=== PATIENT | female | born 1965 | race African-American/Black ===

== ENCOUNTER 2017-04-05 11:45 | Emergency (ER) | payer MEDICARE, MEDICAID ==
[~2017-04-05] VITALS: Ht 167.6 cm; Wt 64.4 kg
[~2017-04-05 11:45] MED LIST: ALBUTEROL SULF8.5 GM INH; ASPIR 8181 MG ORAL; AZITHROMYCIN250 MG ORAL; IBUPROFEN600 MG ORAL; MULTI VITAMIN1 EACH ORAL; NORCO 10-325 T1 EACH ORAL
[2017-04-05 11:53] VITALS: BP 143/87
--- NOTE | 2017-04-05 12:30 | Emergency Room Report ---
History of Present Illness General Chief Complaint: Female Urogenital Problems Source: Patient Present Illness HPI 51 YO Female presents to the ED C/O Urinary incontinence x 1 month, with urinary urgency and dysuria on occasion. Denies hematuria. Denies fevers or chills. reports that she feels as though her bladder is full all the time. Denies abdominal pain, tenderness, N/V/C/D. denies low back pain. denies uterine prolapse. Denies vaginal discharge or pelvic pain. Denies recent trauma , fall or back pain. Denies CP, Palpitations, LOC, AMS, dizziness, Changes in Vision, Sensation, paresthesias, or a sudden severe headache. Allergies: Coded Allergies: No Known Allergies (Unverified , 01/07/16) Patient History Past Medical History: see triage record Past Surgical History: none Pertinent Family History: none Last Menstrual Period: menopause Now: No Reviewed Nursing Documentation: PMH: Agreed, PSxH: Agreed Nursing Documentation-PMH Past Medical History: No Stated History Review of Systems All Other Systems: negative except mentioned in HPI Physical Exam Vital Signs Date Time Temp Pulse Resp B/P (MAP) Pulse Ox O2 Delivery O2 Flow Rate FiO2 04/05/17 11:53 97.3 99 18 143/87 99 Room Air Sp02 EP Interpretation: reviewed, normal General Appearance: no apparent distress, alert, GCS 15, non-toxic Head: normocephalic, atraumatic ENT: hearing grossly normal, normal voice Neck: full range of motion Respiratory: lungs clear, normal breath sounds, speaking full sentences Cardiovascular #1: regular rate, rhythm Gastrointestinal: normal bowel sounds, non tender, soft Rectal: deferred Genitourinary: normal inspection, no CVA tenderness Musculoskeletal: back normal, gait/station normal Neurologic: alert, oriented x3, responsive, motor strength/tone normal, sensory intact, normal gait, speech normal Skin: normal color, no rash, warm/dry, well hydrated Medical Decision Making PA Attestation Dr. Espinal is my supervising Physician whom patient management has been discussed with. Diagnostic Impression: Primary Impression: Incontinence of urine in female ER Course 51 YO Female presents to the ED C/O Urinary incontinence x 1 month, with urinary urgency and dysuria on occasion. Denies hematuria. Denies fevers or chills. reports that she feels as though her bladder is full all the time. Denies abdominal pain, tenderness, N/V/C/D. denies low back pain. denies uterine prolapse. Denies vaginal discharge or pelvic pain. Denies recent trauma , fall or back pain. Denies CP, Palpitations, LOC, AMS, dizziness, Changes in Vision, Sensation, paresthesias, or a sudden severe headache. Ddx considered but are not limited to UTi , Pyelo, STI, Stone, Cystitis, incontinence, Vital signs: are WNL, pt. is afebrile H&PE are most consistent with UTI ORDERS: - UA labs are attached : Most indicative of contamination: presence of equal amounts of bacteria and squamous cells, no elevation in inflammatory markers, nitrite negative. Some RBC's noted. ED INTERVENTIONS: - Pyridium PO -Discussed with this patient that I do not identify an emergent condition at this time and that she is stable for close outpatient followup and needs to be evaluated by a urologist for urinary incontinence. DISCHARGE: At this time pt. is stable for d/c to home. Will provide printed patient care instructions, and any necessary prescriptions. Care plan and follow up instructions have been discussed with the patient prior to discharge. Labs Test 04/05/17 12:45 Urine Color Pale yellow Urine Appearance Slightly cloudy Urine pH 6 (4.5-8.0) Urine Specific [place] 1.010 (1.005-1.035) Urine Protein Negative (NEGATIVE) Urine Glucose (UA) Negative (NEGATIVE) Urine Ketones 1+ (NEGATIVE) Urine Occult Blood 4+ (NEGATIVE) Urine Nitrite Negative (NEGATIVE) Urine Bilirubin Negative (NEGATIVE) Urine Urobilinogen Normal MG/DL (0.0-1.0) Urine Leukocyte Esterase Negative (NEGATIVE) Urine RBC 5-10 /HPF (0 - 2) Urine WBC 0-2 /HPF (0 - 2) Urine Squamous Epithelial Cells Occasional /LPF Urine Bacteria Few /HPF (NONE) Last Vital Signs Date Time Temp Pulse Resp B/P (MAP) Pulse Ox O2 Delivery O2 Flow Rate FiO2 04/05/17 11:53 97.3 99 18 143/87 99 Room Air Disposition: HOME, SELF-CARE Condition: Stable Scripts Phenazopyridine Hcl* (PYRIDIUM*) 200 Mg Tablet 200 MG ORAL THREE TIMES A DAY for 3 Days, #9 TAB 0 Refills Prov: Anika Cruz 04/05/17 Patient Instructions: Urinary Incontinence Additional Instructions: Take medications as directed. Follow up with a UROLOGIST in 3-5 days Return sooner to ED if new symptoms occur, or current symptoms become worse. Pyridium will cause your urine to change color (Red/[place]), this is a normal side effect of the medication. - Please note that this Emergency Department Report was dictated using Jamgluematurity checker technology software, occasionally this can lead to erroneous entry secondary to interpretation by the dictation equipment. Anika Cruz Apr 05, 2017 12:30
[2017-04-05] MEDS ORDERED: Phenazopyridine 200mg tab ORAL ONE (13:00)
[2017-04-05 13:05] LABS: BILIRUBIN, URINE NEGATIVE (NEGATIVE); COLOR,URINE PALE YELLOW; GLUCOSE, URINE (UA) NEGATIVE (NEGATIVE); KETONES,URINE 1+ (NEGATIVE); LEUKOCYTE ESTERASE ,URINE NEGATIVE (NEGATIVE); NITRITE,URINE NEGATIVE (NEGATIVE); PH,URINE 6 (4.5-8.0); PROTEIN,URINE NEGATIVE (NEGATIVE); UROBILINOGEN,URINE NORMAL MG/DL (0.0-1.0)
[2017-04-05 13:29] LABS: APPEARANCE,URINE SLIGHTLY CLOUDY
[2017-04-05] MEDS ORDERED: PHENAZOPYRIDIN200 MG ORAL (13:32)
[2017-04-05 13:40] VITALS: BP 140/84
== END 2017-04-05 13:40 | disposition home or self-care (01) ==
LOC: EMR 12:21
DX: R32 Unspecified urinary incontinence (principal); R39.15 Urgency of urination; R30.0 Dysuria
CPT/HCPCS: 81003; 99283

== ENCOUNTER 2017-04-10 18:13 | Emergency (ER) | payer MEDICARE, MEDICAID ==
[~2017-04-10] VITALS: Ht 167.6 cm; Wt 66.2 kg
[~2017-04-10 18:13] MED LIST changes: +PHENAZOPYRIDIN200 MG ORAL
[2017-04-10] MEDS ORDERED: LATUDA40 MG PO (18:31)
[2017-04-10] MEDS ORDERED: AMBIEN10 M1 ORAL (18:31)
[2017-04-10] MEDS ORDERED: AZO URINARY TR1 EACH PO (18:32)
[2017-04-10 19:30] VITALS: BP 138/89
[2017-04-10 19:50] LABS: APPEARANCE,URINE CLEAR; BILIRUBIN, URINE NEGATIVE (NEGATIVE); COLOR,URINE PALE YELLOW; GLUCOSE, URINE (UA) NEGATIVE (NEGATIVE); KETONES,URINE NEGATIVE (NEGATIVE); LEUKOCYTE ESTERASE ,URINE NEGATIVE (NEGATIVE); NITRITE,URINE NEGATIVE (NEGATIVE); PH,URINE 6.5 (4.5-8.0); PROTEIN,URINE NEGATIVE (NEGATIVE); UROBILINOGEN,URINE NORMAL MG/DL (0.0-1.0)
[2017-04-10 20:15] VITALS: BP 132/79
[2017-04-10] MEDS ORDERED: CEPHALEXIN500 MG ORAL (20:19)
[2017-04-10 20:22] VITALS: BP 132/79
--- NOTE | 2017-04-10 22:23 | Emergency Room Report ---
History of Present Illness General Chief Complaint: General Complaint Source: Patient Present Illness [facility] The patient is a 51-year-old female presenting for continued urinary symptoms. She states that for the past 2 weeks she has had increased urinary frequency, urgency, and some dysuria. She was seen in this emergency department one week prior for the same complaints and was given prescription for Pyridium which she states helps but symptoms have now returned. She denies other symptoms including N, V, F, chills, back pain Allergies: Coded Allergies: No Known Allergies (Unverified , 01/07/16) Patient History Past Medical History: see triage record Pertinent Family History: none Last Menstrual Period: 2009 Now: No Reviewed Nursing Documentation: PMH: Agreed, PSxH: Agreed Nursing Documentation-PMH Hx Gastrointestinal Problems: Yes - GERD, Chronic Kidney Disease Review of Systems All Other Systems: negative except mentioned in HPI Physical Exam Vital Signs Date Time Temp Pulse Resp B/P (MAP) Pulse Ox O2 Delivery O2 Flow Rate FiO2 04/10/17 18:25 97.9 89 18 145/82 99 Room Air Sp02 EP Interpretation: reviewed, normal General Appearance: no apparent distress, alert, GCS 15, non-toxic Head: normocephalic, atraumatic Eyes: bilateral eye normal inspection, bilateral eye PERRL ENT: hearing grossly normal, normal pharynx, no angioedema, normal voice Respiratory: chest non-tender, lungs clear, normal breath sounds, speaking full sentences Gastrointestinal: normal bowel sounds, soft, non-distended, no guarding, no rebound Rectal: deferred Genitourinary: normal inspection, no CVA tenderness Musculoskeletal: back normal, gait/station normal, normal range of motion, non- tender Neurologic: alert, oriented x3, responsive, motor strength/tone normal, sensory intact, speech normal Psychiatric: judgement/insight normal, memory normal, mood/affect normal, no suicidal/homicidal ideation Skin: normal color, no rash, warm/dry, well hydrated Medical Decision Making PA Attestation Dr. Espinal is my supervising physician. Patient management was discussed with my supervising physician Diagnostic Impression: Primary Impression: Possible urinary tract infection ER Course The patient is a 51-year-old female presenting for continued urinary symptoms Differential diagnosis considered but not limited to: UTI, BV, yeast infection, pyelonephritis, PID, , incontinence PE: Vitals WNL. NAD. Abdomen: Normal appearance. Non distended. No ecchymosis. Normal BS. Non tender. No McBurney point tenderness. No guarding. No CVA tenderness Urinalysis is not consistent with urinary tract infection Urinalysis is not consistent with UTI. Patient will be treated with antibiotics primarily due to symptoms. She was told this may also be symptoms of incontinence and will need to follow up with her primary doctor. ER precautions are given Laboratory Tests Test 04/10/17 19:22 Urine Color Pale yellow Urine Appearance Clear Urine pH 6.5 (4.5-8.0) Urine Specific [place] 1.015 (1.005-1.035) Urine Protein Negative (NEGATIVE) Urine Glucose (UA) Negative (NEGATIVE) Urine Ketones Negative (NEGATIVE) Urine Occult Blood 2+ (NEGATIVE) H Urine Nitrite Negative (NEGATIVE) Urine Bilirubin Negative (NEGATIVE) Urine Urobilinogen Normal MG/DL (0.0-1.0) Urine Leukocyte Esterase Negative (NEGATIVE) Urine RBC 2-4 /HPF (0 - 2) H Urine WBC 0-2 /HPF (0 - 2) Urine Squamous Epithelial Cells Occasional /LPF Urine Bacteria None /HPF (NONE) Lab Results Impression Not consistent with UTI Last Vital Signs Date Time Temp Pulse Resp B/P (MAP) Pulse Ox O2 Delivery O2 Flow Rate FiO2 04/10/17 20:22 97.6 79 16 132/79 100 Room Air Status: improved Disposition: HOME, SELF-CARE Condition: Improved Scripts Cephalexin* (KEFLEX*) 500 Mg Capsule 500 MG ORAL EVERY 12 HOURS, #14 CAP 0 Refills Prov: ANA LUISA DALTON 04/10/17 Patient Instructions: Urinary Incontinence, Overactive Bladder, Adult, Pyelonephritis, Adult Additional Instructions: I discussed my findings with the patient. All questions and concerns have been answered. Treatment and medication compliance have been addressed. I advised the patient that they need to follow up with PMD in 3-5 days. Return to ED if symptoms worsen, new symptoms arise, or if needed for any reason. Patient verbalized understanding of discharge instructions. ANA LUISA DALTON Apr 10, 2017 22:23
== END 2017-04-10 20:22 | disposition home or self-care (01) ==
LOC: EMR 18:55
DX: R35.0 Frequency of micturition (principal); R39.15 Urgency of urination; R30.0 Dysuria; K21.9 Gastro-esophageal reflux disease without esophagitis; N18.9 Chronic kidney disease, unspecified
CPT/HCPCS: 81003; 99283

== ENCOUNTER 2017-04-19 15:16 | Emergency (ER) | payer MEDICARE, MEDICAID ==
[~2017-04-19] VITALS: Ht 170.2 cm; Wt 64.9 kg
[~2017-04-19 15:16] MED LIST changes: +AMBIEN10 M1 ORAL; +AZO URINARY TR1 EACH PO; +CEPHALEXIN500 MG ORAL; +LATUDA40 MG PO
[2017-04-19 15:26] VITALS: BP 145/84
[2017-04-19 16:04] LABS: APPEARANCE,URINE CLEAR; BILIRUBIN, URINE NEGATIVE (NEGATIVE); COLOR,URINE PALE YELLOW; GLUCOSE, URINE (UA) NEGATIVE (NEGATIVE); KETONES,URINE NEGATIVE (NEGATIVE); LEUKOCYTE ESTERASE ,URINE NEGATIVE (NEGATIVE); NITRITE,URINE NEGATIVE (NEGATIVE); PH,URINE 6 (4.5-8.0); PROTEIN,URINE NEGATIVE (NEGATIVE); UROBILINOGEN,URINE NORMAL MG/DL (0.0-1.0)
--- NOTE | 2017-04-19 16:34 | Emergency Room Report ---
History of Present Illness General Chief Complaint: Female Urogenital Problems Source: Patient Present Illness HPI 51-year-old female presents to the emergency department complaining of intermittent urinary incontinence times months. Patient reports scant amount of urine that is released when she's laughing or coughing. Patient states she just recently finished a course of antibiotics for UTI. Patient denies dysuria , hematuria, frequency, urgency, low back pain, fevers or chills. Patient denies history of spinal injury recent trauma or fall. Patient denies weakness in the lower extremities or incontinence of the bowel. She reports history of stage II kidney disease. Denies abdominal pain or tenderness. She states she has not followed up with urologist Denies CP, Palpitations, LOC, AMS, dizziness , Changes in Vision, Sensation, paresthesias, or a sudden severe headache. No history of neoplastic disease or recent spinal procedures. Allergies: Coded Allergies: No Known Allergies (Unverified , 01/07/16) Patient History Past Medical History: see triage record Past Surgical History: none Pertinent Family History: none Last Menstrual Period: 2009 Immunizations: UTD Reviewed Nursing Documentation: PMH: Agreed, PSxH: Agreed Nursing Documentation-PMH Past Medical History: No History, Except For Hx Gastrointestinal Problems: Yes - GERD, Chronic Kidney Disease Review of Systems All Other Systems: negative except mentioned in HPI Physical Exam Vital Signs Date Time Temp Pulse Resp B/P (MAP) Pulse Ox O2 Delivery O2 Flow Rate FiO2 04/19/17 15:26 97.7 84 16 145/84 99 Room Air Sp02 EP Interpretation: reviewed, normal General Appearance: no apparent distress, alert, GCS 15, non-toxic Head: normocephalic, atraumatic Eyes: bilateral eye normal inspection, bilateral eye PERRL ENT: hearing grossly normal, normal voice Neck: full range of motion Respiratory: chest non-tender, lungs clear, normal breath sounds, speaking full sentences Cardiovascular #1: regular rate, rhythm, no edema Gastrointestinal: normal bowel sounds, non tender, soft Rectal: deferred Genitourinary: normal inspection, no CVA tenderness Musculoskeletal: back normal, gait/station normal, normal range of motion, non- tender Neurologic: alert, oriented x3, responsive, motor strength/tone normal, sensory intact, speech normal, grossly normal Psychiatric: judgement/insight normal Skin: normal color, no rash, warm/dry, well hydrated Lymphatic: no adenopathy Medical Decision Making PA Attestation Dr. keith is my supervising Physician whom patient management has been discussed with. Diagnostic Impression: Primary Impression: Incontinence of urine in female Additional Impression: Dermatitis ER Course 51-year-old female presents to the emergency department complaining of intermittent urinary incontinence times months. Patient reports scant amount of urine that is released when she's laughing or coughing. Patient states she just recently finished a course of antibiotics for UTI. Patient denies dysuria , hematuria, frequency, urgency, low back pain, fevers or chills. Patient denies history of spinal injury recent trauma or fall. Patient denies weakness in the lower extremities or incontinence of the bowel. She reports history of stage II kidney disease. Denies abdominal pain or tenderness. She states she has not followed up with urologist Denies CP, Palpitations, LOC, AMS, dizziness , Changes in Vision, Sensation, paresthesias, or a sudden severe headache. No history of neoplastic disease or recent spinal procedures. Ddx considered but are not limited to UTi , Pyelo, STI, Stone, CystitisSpinal cord injury, epidural abscess, malignancy just to name a few Vital signs: are WNL, pt. is afebrile H&PE are most consistent with non-Neurogenic urinary incontinence no, neurological deficits, no evidence of cauda equina. ORDERS: - UA labs are attached - few rbc's otherwise Most indicative of contamination: presence of equal amounts of bacteria and squamous cells, no elevation in inflammatory markers, nitrite negative. ED INTERVENTIONS: None required at this time. -I do not identify an emergent condition at this time. With current presentation , pt. is stable for close outpatient follow up and conservative treatment. D/ w pt. to return promptly to ED with worsening or new symptoms.- Pt. (and or responsible republican) verbalizes' understanding and agreement with proposed treatment plan.proposed treatment plan. Discussed with patient that she requires urology follow. Discussed with patient she'll be prescribed a barrier cream as she also complains of irritation due to constant contact with urine DISCHARGE: At this time pt. is stable for d/c to home. Will provide printed patient care instructions, and any necessary prescriptions. Care plan and follow up instructions have been discussed with the patient prior to discharge. Labs Test 04/19/17 15:40 Urine Color Pale yellow Urine Appearance Clear Urine pH 6 (4.5-8.0) Urine Specific [place] 1.010 (1.005-1.035) Urine Protein Negative (NEGATIVE) Urine Glucose (UA) Negative (NEGATIVE) Urine Ketones Negative (NEGATIVE) Urine Occult Blood 4+ (NEGATIVE) Urine Nitrite Negative (NEGATIVE) Urine Bilirubin Negative (NEGATIVE) Urine Urobilinogen Normal MG/DL (0.0-1.0) Urine Leukocyte Esterase Negative (NEGATIVE) Urine RBC 2-4 /HPF (0 - 2) Urine WBC 0-2 /HPF (0 - 2) Urine Squamous Epithelial Cells Few /LPF (NONE/OCC) Urine Bacteria Few /HPF (NONE) Last Vital Signs Date Time Temp Pulse Resp B/P (MAP) Pulse Ox O2 Delivery O2 Flow Rate FiO2 04/19/17 15:26 97.7 16 145/84 99 Room Air 04/19/17 15:26 84 Disposition: HOME, SELF-CARE Condition: Stable Scripts Petrolatum,White (DESITIN MULTI-PURPOSE) 99 Gm Oint...g. 1 APPLIC TP TID, #99 GM Prov: Anika Cruz 04/19/17 Patient Instructions: Urinary Incontinence Additional Instructions: Take medications as directed. Follow up with a Primary Care Provider for referral to UROLOGIST in 3-5 days, to further evaluate you for urinary incontinence. --Please review list of primary care clinics, if you do not already have a primary care provider Return sooner to ED if new symptoms occur, or current symptoms become worse. - Please note that this Emergency Department Report was dictated using Adapxoperator technology software, occasionally this can lead to erroneous entry secondary to interpretation by the dictation equipment. Anika Cruz Apr 19, 2017 16:34
[2017-04-19] MEDS ORDERED: DESITIN MULTI-P99 GM TP (16:46)
[2017-04-19 16:52] VITALS: BP 139/67
== END 2017-04-19 16:53 | disposition home or self-care (01) ==
LOC: EMR 16:30
DX: R32 Unspecified urinary incontinence (principal); L30.9 Dermatitis, unspecified
CPT/HCPCS: 81003; 99283

== ENCOUNTER 2018-04-15 02:05 | Emergency (ER) | payer MEDICARE, MEDICAID ==
[~2018-04-15] VITALS: Ht 170.2 cm; Wt 74.8 kg
[~2018-04-15 02:05] MED LIST changes: +DESITIN MULTI-P99 GM TP
[2018-04-15 02:10] VITALS: BP 119/87
--- NOTE | 2018-04-15 02:10 | NUR ---
ED Nurse Note: patient walked into ED c/o of a laceration on her right pinky finger, patient states that she was washing dishes. at time of arrival, the cut is currently open and is bleeding. 9/10 pt is able to have full range of motion on affected extremity. pulse and sensation noted. cap refill less than 3. laceration appears non infectious, such as no abnormal odor noted, no puss or any drainage noted.
[2018-04-15] MEDS ORDERED: SEROQUEL XR1 EACH PO (02:12)
--- NOTE | 2018-04-15 02:35 | Emergency Room Report ---
History of Present Illness General Chief Complaint: Laceration Source: Patient Present Illness HPI Is a 52-year-old female with chief complaint of right fifth finger injury and laceration. She was cleaning her cup and it broke. Sustained a laceration to the fifth finger on the right hand. Onset just prior to arrival. No fever chills but no nausea no vomiting. Worse with movement. No active bleeding at this point. Pain is 7 out of 10. Allergies: Coded Allergies: No Known Allergies (Unverified , 01/07/16) Patient History Past Medical History: see triage record, old chart reviewed Past Surgical History: none Pertinent Family History: none Social History: Denies: smoking Last Menstrual Period: n/a Now: No : 4 Para: 4 Immunizations: UTD Reviewed Nursing Documentation: PMH: Agreed; PSxH: Agreed Nursing Documentation-PMH Past Medical History: No History, Except For Hx Gastrointestinal Problems: Yes - GERD Review of Systems Eye: Denies: eye pain, blurred vision ENT: Denies: ear pain, nose congestion, throat swelling Respiratory: Denies: cough, shortness of breath Cardiovascular: Denies: chest pain, palpitations Gastrointestinal: Denies: abdominal pain, diarrhea, nausea, vomiting Musculoskeletal: Denies: back pain, joint pain Skin: Denies: rash Neurological: Denies: headache, numbness Endocrine: Denies: increased thirst, increased urine Hematologic/Lymphatic: Denies: easy bruising All Other Systems: negative except mentioned in HPI Physical Exam Vital Signs Date Time Temp Pulse Resp B/P (MAP) Pulse Ox O2 Delivery O2 Flow Rate FiO2 04/15/18 02:06 98.2 124 18 95 Room Air 04/15/18 02:10 119/87 vitals normal except for tachycardia Sp02 EP Interpretation: reviewed, normal General Appearance: well appearing, no apparent distress, alert Head: normocephalic, atraumatic Eyes: bilateral eye PERRL, bilateral eye EOMI ENT: hearing grossly normal, normal pharynx Neck: full range of motion, supple, no meningismus Respiratory: chest non-tender, lungs clear, normal breath sounds Cardiovascular #1: regular rate, rhythm, no murmur Gastrointestinal: normal bowel sounds, non tender, no mass, no organomegaly, no bruit, non-distended Musculoskeletal: back normal, gait/station normal, normal range of motion, other - Right fifth finger: There is a flap laceration over the PIP joint. No foreign body. No tendon laceration. Full range of motion. Measured 2cm Psychiatric: mood/affect normal Skin: warm/dry Procedures Laceration/Wound Repair Laceration/Wound Repair : Consent: Verbal Wound Location: upper extremity Wound's Depth, Shape: flap Wound Length (cm): 2 Wound Explored: clean Irrigated w/ Saline (ccs): 1000 Betadine Prep?: Yes Anesthesia: 1% Lidocaine Volume Anesthetic (ccs): 2 Wound Debrided: minimal Suture Size/Type: 5:0, proline Number of Sutures: 6 Patient Tolerated: Well Complications: None Medical Decision Making Diagnostic Impression: Primary Impression: Laceration of finger of right hand Qualified Codes: S61.216A - Laceration without foreign body of right little finger without damage to nail, initial encounter ER Course Patient with finger laceration to the right pinky finger. No foreign body. No tendon laceration. We'll discharge home. Last Vital Signs Date Time Temp Pulse Resp B/P (MAP) Pulse Ox O2 Delivery O2 Flow Rate FiO2 04/15/18 02:10 98.2 72 18 119/87 95 Room Air Status: improved Disposition: HOME, SELF-CARE Condition: Stable Scripts Ibuprofen* (MOTRIN*) 600 Mg Tablet 600 MG ORAL THREE TIMES A DAY, #30 TAB 0 Refills Prov: John Mota MD 04/15/18 Cephalexin* (KEFLEX*) 500 Mg Capsule 500 MG ORAL TID, #21 CAP Prov: John Mota MD 04/15/18 Patient Instructions: Laceration Care, Adult Additional Instructions: Keep wound clean. Apply antibiotic ointment. Follow-up with your doctor in 2- 3 days for recheck. Sutures out in 10-14 days. John Mota MD Apr 15, 2018 02:35
[2018-04-15] MEDS ORDERED: CEPHALEXIN500 MG ORAL (03:04)
[2018-04-15] MEDS ORDERED: IBUPROFEN600 MG ORAL (03:04)
[2018-04-15 03:10] VITALS: BP 122/86
[2018-04-15 03:11] VITALS: BP 119/87
[2018-04-15] MEDS ORDERED: Norco 5mg/325mg tab ORAL ONE (03:15)
[2018-04-15] MEDS ORDERED: Bacitracin Oint UD TOPIC ONE (03:15)
--- NOTE | 2018-04-15 03:18 | NUR ---
ED Nurse Note: Pt is DC per ERMD order. pt is instructed to follow up with primary MD as soon as possible. pt is alert and oriented times 4. no skin issues noted in Er. pt is able to teach back Dc notes as well as prescriptions. pt has left with belongings, as well as DC notes and prescriptions. pt vital signs, condition, and status has been reported to ERMD and book packer prior to DC. pt is able to abmulate with steady gait. ID band removed prior to Dc. wound has been sutured and cleaned by ERMD. pulse and sensation felt on injured extremity. pt is able to have full range of motion on injured extremity. bleeding is non active. no signs of infection.
== END 2018-04-15 03:21 | disposition home or self-care (01) ==
LOC: EMR 02:30
DX: S61.216A Laceration without foreign body of right little finger without damage to nail, initial encounter (principal); K21.9 Gastro-esophageal reflux disease without esophagitis; W45.8XXA Other foreign body or object entering through skin, initial encounter; Y92.9 Unspecified place or not applicable
CPT/HCPCS: 99283